=== PATIENT | female | born 1970 | race Caucasian/White ===

== ENCOUNTER → 2016-11-06 | Outpatient (CLI) | payer OTHER ==
--- NOTE | 2016-11-06 17:05 | US ---
Pelvic Sonogram (With Transvaginal) Clinical Indications: Menorrhagia in a premenopausal female. Technique: Transabdominal and endovaginal exams. Transvaginal exam is added to better evaluate the uterus and ovaries. Findings Uterus measures 5.1 x 5.7 x 9.6 cm. The endometrial stripe is 1.1 cm and mildly heterogeneous without evidence of mass. There are no fibroids or free fluid. Right ovary measures 3.7 x 1.8 x 3.0 cm with normal color Doppler flow and a normal resistive index o f 0.53. Left ovary measures 3.0 x 1.5 x 2.3 cm with normal color Doppler flow and a normal resistive index of 0.40. Prominent vessels are present in the adnexa on the right. Impressions 1. Mildly heterogeneous endometrium but no definite source of menorrhagia. If clinical concern persis ts, hysterosonography or endometrial biopsy could be considered. 2. 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
== END ==
LOC: FIMAGING 13:27
PROVIDERS: ATTEND Obstetrics & Gynecology
DX: N92.4 Excessive bleeding in the premenopausal period (principal)

== ENCOUNTER → 2017-10-08 | Outpatient (CLI) | payer OTHER | LOC: FIMAGING 13:40 | PROVIDERS: ATTEND Obstetrics & Gynecology | DX: Z12.31 Encounter for screening mammogram for malignant neoplasm of breast (principal) | CPT/HCPCS: G0202 ==

== ENCOUNTER → 2018-11-04 | Outpatient (CLI) | payer OTHER | LOC: FIMAGING 13:18 | PROVIDERS: ATTEND Obstetrics & Gynecology | DX: Z12.31 Encounter for screening mammogram for malignant neoplasm of breast (principal); Z80.3 Family history of malignant neoplasm of breast ==